=== PATIENT | female | born 1960 | race Caucasian/White ===

== ENCOUNTER 2018-12-08 20:06 | Inpatient (IN) | payer MEDICAID ==
[~2018-12-08] VITALS: Ht 157.5 cm; Wt 45.0 kg
--- NOTE | 2018-12-08 20:07 | NUR ---
Pt sent from [facility] r/t swelling BLE, increased abdominal distension, and increased confusion over the past 5 days. Pt Alert to self, confused, jaundiced with abdominal distension, no swelling noted to BLE. Pt attempting to climb out of bed. Pt on stope miner and in view of nurses station.
--- NOTE | 2018-12-08 20:07 | NUR ---
Placed in room 1 . Placed on steamtable attendant railroad, blood pressure machine and pulse oximeter. To gown for exam. Side rails up. Report given to RADHA TAI BY FLORENTINO TAI.
[2018-12-08 20:23] VITALS: BP_SYST 100
[2018-12-08] MEDS ORDERED: ACET-2165 PO (20:34)
[2018-12-08] MEDS ORDERED: PRO40 PO (20:34)
[2018-12-08] MEDS ORDERED: IBUP-1968 PO (20:34)
[2018-12-08] MEDS ORDERED: LACT10SO6 PO (20:34)
[2018-12-08] MEDS ORDERED: LIB25 PO (20:34)
[2018-12-08] MEDS ORDERED: NEOM500T PO (20:34)
[2018-12-08] MEDS ORDERED: RIFA550T5 PO (20:34)
--- NOTE | 2018-12-08 20:35 | NUR ---
ER at bedside examining patient.
--- NOTE | 2018-12-08 20:35 | NUR ---
Medication reconciliation completed with information provided by [facility]. Any prior medication reconciliation on file was reviewed and corrected.
--- NOTE | 2018-12-08 20:45 | NUR ---
# 20 gauge angiocath placed to LAC. Use of asceptic technique. Opsite placed over site. Blood return noted. Blood for lab drawn from site. Flushed with 10 cc of normal saline. No evidence of infiltration noted. Patient tolerated well.
--- NOTE | 2018-12-08 21:00 | NUR ---
Pt to CT via stretcher in stable condition.
--- NOTE | 2018-12-08 21:10 | NUR ---
Pt returns from CT. NAD.
--- NOTE | 2018-12-08 21:20 | NUR ---
#14 Fr. In/Out urinary cath performed with ~100 mL dark tea colored urine. Specimen collected and sent to lab. Pt tolerated well.
[2018-12-08 21:23] LABS: BASOPHILS # (AUTO) 0.1 K/uL (0.0-0.2); BASOPHILS % (AUTO) 1.2 % (0.0-2.0); EOSINOPHILS # (AUTO) 0.1 K/uL (0.0-0.4); HEMATOCRIT 31.3 % (36-48); HEMOGLOBIN 10.6 g/dL (12.0-16.0); LYMPHOCYTES # (AUTO) 0.6 K/uL (1.0-5.5); LYMPHOCYTES % (AUTO) 13.8 % (20.5-51.5); MEAN CORPUSCULAR HEMOGLOBIN 33 pg (27-31); MEAN CORPUSCULAR HGB CONC 34 % (32-36); MEAN CORPUSCULAR VOLUME 98 fL (79.0-98.0); MONOCYTES # (AUTO) 0.5 K/uL (0.0-1.0); MONOCYTES % (AUTO) 10.6 % (1.7-9.3); NEUTROPHILS # (AUTO) 3.2 K/uL (1.8-7.7); NEUTROPHILS % (AUTO) 72.4 % (40.0-70.0); PLATELET COUNT (AUTO) 137 K/uL (130-430); RED CELL DISTRIBUTION WIDTH 22.4 % (9.0-15.0); WHITE BLOOD COUNT (AUTO) 4.4 K/uL (4.8-10.8)
[2018-12-08 21:28] LABS: CALCIUM 8.4 mg/dL (8.4-11.0); CREATININE 0.57 mg/dL (0.55-1.30); POTASSIUM 3.6 mmol/L (3.5-5.1)
[2018-12-08 21:36] LABS: TOTAL BILIRUBIN 3.3 mg/dL (0.0-1.0)
[2018-12-08 22:02] LABS: BILIRUBIN,URINE 3+ (NEGATIVE); BLOOD, URINE NEGATIVE (NEGATIVE); CLARITY/URINE HAZY (CLEAR); COLOR,URINE AMBER (YELLOW); GLUCOSE,URINE NEGATIVE (NEGATIVE); KETONES,URINE TRACE (NEGATIVE); LEUKOCYTE ESTERASE ,URINE NEGATIVE (NEGATIVE); NITRITE, URINE POSITIVE (NEGATIVE); PH,URINE 5.5 (5.0-8.0); PROTEIN URINE TRACE (NEGATIVE); UROBILINOGEN,URINE 0.2 (0.2-1.0)
[2018-12-08 22:20] LABS: BACTERIA,URINE MODERATE /HPF (None Seen); FINE GRANULAR CASTS,URINE 0-10 /LPF (None Seen); RBC,URINE 0-3 /HPF (0-3); WBC,URINE 0-3 /HPF (0-3)
[2018-12-08 22:21] LABS: MUCUS,URINE 2+ /LPF (None Seen)
--- NOTE | 2018-12-08 22:30 | NUR ---
Resting quietly, even and non-labored respirations, VSS, NAD.
[2018-12-08] MEDS ORDERED: cefTRIAXone 1 GM in D5W 50 ML IV ONE (22:45)
[2018-12-08] MEDS ORDERED: LACTULOSE 20 GM/30 ML UDC PO ONE (22:45)
[2018-12-08] MEDS ORDERED: cefTRIAXone 1 GM IVPB PREMIX 50 ML IV ONE (23:12)
--- NOTE | 2018-12-09 01:25 | NUR ---
Pt pulling off B/P cuff and attempting to get OOB. Dr. Lin notified. Bilat soft wrist restraints applied.
[2018-12-09] MEDS ORDERED: AZITHROMYCIN 500 MG in NS 250 ML IV ONE (01:45)
--- NOTE | 2018-12-09 01:45 | NUR ---
Pt moved to ER bed 06. EDIL, GALE.
[2018-12-09] MEDS ORDERED: AZITHROMYCIN 500 MG/VIAL (ZITHROMAX) IV ONE (02:20)
--- NOTE | 2018-12-09 02:25 | NUR ---
Patient will be admitted to care of Dr. Moran. Admitted to Tele unit. Will go to room 104B. Belongings list completed. Summary report printed. Bedside report given to ABIDA Plata.
--- NOTE | 2018-12-09 02:28 | NUR ---
ADMISSION NOTE Received patient from ER via pamela, received report from BAIDA le. Patient admitted with diagnosis of ascites,pna, hepatic encephalopathy. Patient oriented to hospital routine, call light, toileting and safety-patient verbalized understanding.
[2018-12-09 02:45] VITALS: BP_SYST 119
[2018-12-09] MEDS: D5/0.45 NS 1,000 ML IV SCH ×2 (03:16→22:00)
--- NOTE | 2018-12-09 03:57 | NUR ---
ID Consultation Paged Reason for consultation: Hepatic Encephalopathy Was consult called: Yes Person who was notified: Anais Consulting Physician: Dr Santo Mills Licensed Surveyor Specialty: ID Licensed Surveyor Ordered By: Dr Moran
--- NOTE | 2018-12-09 04:00 | NUR ---
AFFECT LABILE. OCCASIONALLY SHOUTS AND CALLS OUT NAMES. CIRCULATION CHECK DONE. PULSES PALPABLE. BOUTS OF RESTLESSNESS.
--- NOTE | 2018-12-09 06:00 | NUR ---
OCCASIONALLY SHOUTS. RESTLESS. PULSES PALPABLE. REMAINS IN GUARDED CONDITION.
--- NOTE | 2018-12-09 07:56 | NUR ---
initial notes rec patient awake but confused. ivf infusing well on the l ac. no infiltration noted. dr bledsoe at bedside. resp easy and unlabored.bed to the lowest position and side rails up and locked.will continue to monitor patient to patient.
[2018-12-09 08:00] VITALS: BP_SYST 125
[2018-12-09 08:00] LABS: BASOPHILS # (AUTO) 0.1 K/uL (0.0-0.2); BASOPHILS % (AUTO) 1.4 % (0.0-2.0); EOSINOPHILS # (AUTO) 0.1 K/uL (0.0-0.4); EOSINOPHILS % (AUTO) 2.2 % (0.0-4.0); HEMATOCRIT 29.4 % (36-48); HEMOGLOBIN 9.9 g/dL (12.0-16.0); LYMPHOCYTES # (AUTO) 0.7 K/uL (1.0-5.5); LYMPHOCYTES % (AUTO) 16.6 % (20.5-51.5); MEAN CORPUSCULAR HEMOGLOBIN 33 pg (27-31); MEAN CORPUSCULAR HGB CONC 34 % (32-36); MEAN CORPUSCULAR VOLUME 99 fL (79.0-98.0); MONOCYTES # (AUTO) 0.3 K/uL (0.0-1.0); MONOCYTES % (AUTO) 8.6 % (1.7-9.3); NEUTROPHILS # (AUTO) 2.9 K/uL (1.8-7.7); NEUTROPHILS % (AUTO) 71.2 % (40.0-70.0); PLATELET COUNT (AUTO) 159 K/uL (130-430); RED BLOOD CELL COUNT(AUTO) 2.98 MIL/uL (4.2-6.2); RED CELL DISTRIBUTION WIDTH 23.1 % (9.0-15.0)
[2018-12-09 08:06] LABS: CALCIUM 8.1 mg/dL (8.4-11.0); CREATININE 0.54 mg/dL (0.55-1.30); POTASSIUM 3.1 mmol/L (3.5-5.1); THYROID STIMULATING HORMONE 11.77 uIu/mL (0.36-3.74)
[2018-12-09] MEDS ORDERED: SPIRONOLACTONE 50 MG TABLET (ALDACTONE) PO SCH (09:00)
[2018-12-09] MEDS ORDERED: FUROSEMIDE 20 MG TABLET PO SCH (09:00)
--- NOTE | 2018-12-09 10:36 | NUR ---
Nutrition Update Huang Scale 18 noted. Pt admitted for hepatic encephalopathy, R lower lobe pneumonia. Diet: 2 gm Na BMI: 28.9 kg/m2 RD to follow per nutrition care standards.
[2018-12-09 10:39] LABS: INR 1.4 (0.8-1.2)
[2018-12-09 10:43] LABS: PROTHROMBIN TIME 14.3 SECS (9.5-12.5)
--- NOTE | 2018-12-09 11:59 | NUR ---
rounds spoke to pt's friend and stated does not have power of attorney at law. [facility] was called and spoke with saiar rubin nurse that work there and stated pt normally signed her own but having withdrawals right now and cant sign consent.
[2018-12-09 12:40] VITALS: BP_SYST 119
[2018-12-09] MEDS ORDERED: POTASSIUM CHLORIDE 20 MEQ/PKT PACKET PO ONE (12:45)
--- NOTE | 2018-12-09 12:47 | NUR ---
rounds dr john vallejo signed the consent for the paracenteside and waiting for dr james to co signed and will do procedure.
--- NOTE | 2018-12-09 14:30 | NUR ---
paracentesis paracentesis done at bedside on the lower abdomen obtaining dark tea colored drained 1800cc. no sob noted. will continue to monitor patient.
[2018-12-09] MEDS: LACTULOSE 20 GM/30 ML UDC PO SCH ×3 (14:42→21:10)
[2018-12-09 15:34] LABS: BF APPEARANCE UNSPUN CLEAR (CLEAR); BODY FLUID COLOR YELLOW (LT YELLOW); BODY FLUID TOTAL VOLUME 1875 mL; NEUTROPHIL, BODY FLUID 13 %; RBC, BODY FLUID 32 /uL; SOURCE/TYPE ,BODY FLUID ASCITES; WBC, BODY FLUID 89 /uL
[2018-12-09 15:35] LABS: EOSINOPHIL, BODY FLUID 2 %; LYMPHOCYTES, BODY FLUID 85 %; MONOCYTES,BODY FLUID 0 %
[2018-12-09 16:45] VITALS: BP_SYST 151
--- NOTE | 2018-12-09 18:11 | NUR ---
rounds pt have a large amount of watery stool .pt was cleaned and kept dry . no sob noted. turned repositioned for comfort.
--- NOTE | 2018-12-09 19:25 | NUR ---
closing notes sleeping soundly at this time. bed to the lowest position and side rails up and locked. call light withn reached and patient close to the nurses station. no sob noted.
[2018-12-09 20:00] VITALS: BP_SYST 142
--- NOTE | 2018-12-09 20:00 | NUR ---
Pt is lying in bed confused and disoriented. Pt is also restless and moving her body in bed. Bilateral soft wrist restraints are on and no circulatory impairment noted. IVF of D5 1/2NS is infusing well in LAC at 50ml/hr without any signs of infiltration at the IV site. Fall and safety precautions are in place.
[2018-12-09] MEDS: POTASSIUM CHLORIDE 20 MEQ/PKT PACKET PO SCH (21:09)
[2018-12-09] MEDS: RIFAXIMIN 550 MG TABLET PO SCH (21:09)
[2018-12-09] MEDS: cefTRIAXone 1 GM in D5W 50 ML IV SCH (21:09)
--- NOTE | 2018-12-09 22:00 | NUR ---
Pt remains confused and disoriented. No acute distress noted. IVF is infusing well in [facility]. Fall and safety precautions are in place.
[2018-12-09] MEDS: AZITHROMYCIN 500 MG in NS 250 ML IV SCH (22:14)
[2018-12-09 23:25] VITALS: BP_SYST 100
--- NOTE | 2018-12-10 | NUR ---
IVF is infusing well in [facility]. No distress noted at this time. Fall and safety precautions are in place.
--- NOTE | 2018-12-10 02:00 | NUR ---
No acute distress noted. IVF is infusing well.
[2018-12-10 02:34] LABS: BODY FLUID GLUCOSE 111 mg/dL; BODY FLUID TOTAL PROTEIN 2.3 g/dL
--- NOTE | 2018-12-10 04:00 | NUR ---
Pt is resting quietly in bed. IVF is infusing well in [facility]. Fall and safety precautions are in place.
[2018-12-10] MEDS: D5/0.45 NS 1,000 ML IV SCH (04:44)
--- NOTE | 2018-12-10 05:15 | NUR ---
CONSULT Called Dr. Wetzel's exchange for morning consult [phone] Spoke to Clarisa
--- NOTE | 2018-12-10 05:17 | NUR ---
CONSULT Paged Dr. Mills's answering service for morning consult [phone] Spoke to Clarisa
--- NOTE | 2018-12-10 06:30 | NUR ---
Pt is resting quietly in bed. All pt's needs were attended to. IVF is infusing well in [facility]. Will endorse to day shift nurse.
[2018-12-10 07:23] LABS: CALCIUM 8.3 mg/dL (8.4-11.0); CREATININE 0.62 mg/dL (0.55-1.30)
[2018-12-10 07:28] LABS: HEMATOCRIT 33.5 % (36-48); HEMOGLOBIN 11.3 g/dL (12.0-16.0); MEAN CORPUSCULAR HEMOGLOBIN 33 pg (27-31); MEAN CORPUSCULAR HGB CONC 34 % (32-36); MEAN CORPUSCULAR VOLUME 98 fL (79.0-98.0); PLATELET COUNT (AUTO) 162 K/uL (130-430); RED BLOOD CELL COUNT(AUTO) 3.42 MIL/uL (4.2-6.2); RED CELL DISTRIBUTION WIDTH 22.4 % (9.0-15.0)
[2018-12-10 07:45] VITALS: BP_SYST 152
--- NOTE | 2018-12-10 07:45 | NUR ---
INITIAL ROUNDS Received pt awake, confused, mumbling incoherently to herself. Pt restless and pulling at IV line when released from restraints. Plan of care reviewed with pt-pt just mumbled to herself. IVF infusing well to LAC at ordered rate with no s/s infiltration to site. Pt repositioned with pillow support and heels off-loaded. Pt placed back onto soft wrist restraints for safety. HOB elevated for aspiration precautions. Safety precautions in place.
[2018-12-10] MEDS: POTASSIUM CHLORIDE 20 MEQ/PKT PACKET PO SCH ×2 (09:36→20:25)
[2018-12-10] MEDS: LACTULOSE 20 GM/30 ML UDC PO SCH ×3 (09:36→20:25)
[2018-12-10] MEDS: SPIRONOLACTONE 50 MG TABLET (ALDACTONE) PO SCH (09:37)
[2018-12-10] MEDS: FUROSEMIDE 20 MG TABLET PO SCH (09:37)
[2018-12-10] MEDS: RIFAXIMIN 550 MG TABLET PO SCH ×2 (09:37→20:25)
--- NOTE | 2018-12-10 10:02 | NUR ---
ROUNDS Pt resting quietly in bed with no s/s resp distress, no c/o pain or discomfort. Pt remains restless-pulling telemetry box off. Pt repositioned for skin care with pillow support. Aspiration and safety precautions remain in place.
[2018-12-10 10:03] LABS: ATYPICAL LYMPHOCYTES % 0 % (0-0); BAND % (MANUAL) 6 % (0-6); BASOPHILS % (MANUAL) 0 % (0-2); EOSINOPHILS % (MANUAL) 1 % (0-7); LYMPHOCYTES % (MANUAL) 18 % (20-46); MONOCYTES % (MANUAL) 6 % (0-11)
[2018-12-10 11:28] VITALS: BP_SYST 127
--- NOTE | 2018-12-10 12:18 | NUR ---
ROUNDS Pt with no s/s resp distress, no c/o pain or discomfort. Pt remains restless, pulling at telemetry lines. All precautions remain in place.
[2018-12-10 15:22] VITALS: BP_SYST 106
--- NOTE | 2018-12-10 16:05 | NUR ---
ROUNDS Pt remains restless, pulling on restraints, trying to put her legs over the side rails. Pt had large, soft BM. Pt cleaned up and repositioned with pillow support. No s/s resp distress, no c/o pain or discomfort. Pt remains confused. All precautions remain in place.
--- NOTE | 2018-12-10 18:59 | NUR ---
CLOSING NOTE Pt resting quietly in bed with no s/s resp distress, no c/o pain or discomfort. No changes, all precautions remain in place.
--- NOTE | 2018-12-10 19:45 | NUR ---
Pt was received lying in bed awake, but confused and disoriented. No acute distress noted. Pt is refusing dinner at this time. Bilateral soft wrist restraints are in place and no circulatory impairment noted. IVF of D5 1/2NS is infusing well in LAC at 50ml/hr without any signs of infiltration at the IV site. Fall and safety precautions are in place.
[2018-12-10 20:00] VITALS: BP_SYST 93
[2018-12-10] MEDS: cefTRIAXone 1 GM in D5W 50 ML IV SCH (20:25)
--- NOTE | 2018-12-10 20:25 | NUR ---
Pt c/o being hungry. Pt was fed 1 cup Pudding with her HS medications and pt did not want additional food.
[2018-12-10] MEDS: AZITHROMYCIN 500 MG in NS 250 ML IV SCH (21:09)
--- NOTE | 2018-12-10 22:30 | NUR ---
Pt is sleeping without any distress noted. IVF is infusing well in [facility]. Fall and safety precautions are in place.
--- NOTE | 2018-12-11 00:30 | NUR ---
Pt is sleeping without any distress noted. IVF is infusing well in [facility]. Fall and safety precautions are in place.
[2018-12-11 02:19] VITALS: BP_SYST 108
--- NOTE | 2018-12-11 02:30 | NUR ---
Pt is awake and screaming to go outside. Pt was reoriented to her room and surrounding. IVF is infusing well in [facility]. Fall and safety precautions are in place.
--- NOTE | 2018-12-11 03:35 | NUR ---
Pt was incontinent of yellowish urine and incontinence care given. Pt requested food and was spoon fed 1 cup of Jello per her request. Pt also requested milk and she drank 1/2 cup. In addition, pt requested coffee and she drank 1/2 cup. IVF is infusing well in [facility]. Fall and safety precautions are in place.
[2018-12-11] MEDS: D5/0.45 NS 1,000 ML IV SCH (04:41)
--- NOTE | 2018-12-11 05:00 | NUR ---
Pt is sleeping comfortably in bed without any distress noted. IVF is infusing well in [facility].
--- NOTE | 2018-12-11 06:27 | NUR ---
Pt is awake and moving in bed. Pt remains confused and disoriented. All pt's needs were attended to. IVF is infusing well in [facility]. Will endorse to day shift nurse.
[2018-12-11 08:15] VITALS: BP_SYST 128
--- NOTE | 2018-12-11 08:15 | NUR ---
INITIAL ROUNDS Received pt awake, confused, mumbling incoherently to herself. Pt restless, kicking at staff and pulling at IV line when released from restraints. Plan of care reviewed with pt-pt just stared at this resume writer. IVF infusing well to LAC at ordered rate with no s/s infiltration to site. Pt repositioned with pillow support and heels off-loaded. Pt placed back into soft wrist restraints for safety. HOB elevated for aspiration precautions. Safety precautions in place.
[2018-12-11 08:38] LABS: CALCIUM 8.4 mg/dL (8.4-11.0); CREATININE 0.63 mg/dL (0.55-1.30); POTASSIUM 3.6 mmol/L (3.5-5.1)
[2018-12-11 08:47] LABS: EOSINOPHILS # (AUTO) 0.1 K/uL (0.0-0.4); EOSINOPHILS % (AUTO) 3.5 % (0.0-4.0); HEMATOCRIT 32.9 % (36-48); LYMPHOCYTES # (AUTO) 0.7 K/uL (1.0-5.5); LYMPHOCYTES % (AUTO) 15.6 % (20.5-51.5); MEAN CORPUSCULAR HEMOGLOBIN 33 pg (27-31); MEAN CORPUSCULAR HGB CONC 33 % (32-36); MEAN CORPUSCULAR VOLUME 98 fL (79.0-98.0); MONOCYTES # (AUTO) 0.4 K/uL (0.0-1.0); MONOCYTES % (AUTO) 8.4 % (1.7-9.3); NEUTROPHILS % (AUTO) 71.5 % (40.0-70.0); PLATELET COUNT (AUTO) 156 K/uL (130-430); RED BLOOD CELL COUNT(AUTO) 3.35 MIL/uL (4.2-6.2); RED CELL DISTRIBUTION WIDTH 22.3 % (9.0-15.0); WHITE BLOOD COUNT (AUTO) 4.2 K/uL (4.8-10.8)
[2018-12-11] MEDS: LACTULOSE 20 GM/30 ML UDC PO SCH ×3 (08:51→20:44)
[2018-12-11] MEDS: POTASSIUM CHLORIDE 20 MEQ/PKT PACKET PO SCH ×2 (08:51→20:44)
[2018-12-11] MEDS: SPIRONOLACTONE 50 MG TABLET (ALDACTONE) PO SCH (08:52)
[2018-12-11] MEDS: RIFAXIMIN 550 MG TABLET PO SCH ×2 (08:52→20:44)
[2018-12-11] MEDS: FUROSEMIDE 20 MG TABLET PO SCH (08:52)
[2018-12-11 11:05] LABS: HEPATITIS A AB, IgM Negative (Negative); HEPATITIS B CORE AB, IgM Negative (Negative); HEPATITIS B SURFACE AG Negative (Negative)
[2018-12-11 11:31] VITALS: BP_SYST 106
--- NOTE | 2018-12-11 12:03 | NUR ---
ROUNDS Pt remains restless, pulling at soft wrist restraints, kicking her feet at nurse when approached. Pt mumbling to herself. pt had large BM earlier per ASSISTANT CREDIT MANAGER. All precautions remain in place.
[2018-12-11 15:12] VITALS: BP_SYST 99
--- NOTE | 2018-12-11 16:10 | NUR ---
ROUNDS/BM Pt had a small BM and voided. Pt cleaned up and fresh gown placed on pt. Pt immediately tried to pull at her IV tubing when released from her restraints. Pt repositioned and placed back into restraints, given fresh ice water. Pt now resting quietly with no s/s resp distress. All precautions remain in place.
--- NOTE | 2018-12-11 18:29 | NUR ---
CLOSING NOTE Pt remains restless, pt just repositioned in bed after placing fresh linens and a fresh gown-pt voided on the bed sheets. Pt continues to try to get out of bed, trying to swing her legs over the side rails, pt needs constant redirection when awake. No s/s resp distress, no c/o pain or discomfort. All precautions remain in place.
[2018-12-11] MEDS: cefTRIAXone 1 GM in D5W 50 ML IV SCH (20:01)
[2018-12-11] MEDS: AZITHROMYCIN 500 MG in NS 250 ML IV SCH (20:43)
[2018-12-11 20:45] VITALS: BP_SYST 93
--- NOTE | 2018-12-11 20:45 | NUR ---
Opening notes Pt asleep, resting in bed, no s/s distress noted. VSS, afebrile. IVF infusing at ordered rate L. AC20G no s/s infiltration. IV antibiotics administered as scheduled. Safety measures in place. Bed low, locked, siderails up, bed alarm on. To monitor.
--- NOTE | 2018-12-11 21:35 | NUR ---
Rounds/Med pass Pt awake, restless now. Offered pt dinner to eat and took small bites. Scheduled medication crushed with pudding given as ordered. Pt tolerated well. HOB maintained elevated at this time. Encouraged pt to drink water, pt drank some but refused to eat at this time. Safety measures maintained. To monitor.
--- NOTE | 2018-12-11 23:30 | NUR ---
Rounds/Pericare Pt awake, restless in bed, no s/s resp distress. Pt offered and ate vanilla pudding and drank some water. HOB elevated. Pt incontinent of urine. Pericare provided. Bed low, locked, siderails up, bed alarm on. To monitor pt.
[2018-12-12 01:18] VITALS: BP_SYST 96
[2018-12-12] MEDS: D5/0.45 NS 1,000 ML IV SCH (02:23)
--- NOTE | 2018-12-12 02:25 | NUR ---
Rounds Pt asleep, respirations even and unlabored. IVF bag replaced as needed resumed at ordered rate L. AC 20G, no s/s infiltration. Safety measures in place. Bed low, locked, side rails up, bed alarm on. To monitor.
--- NOTE | 2018-12-12 04:21 | NUR ---
Pt asleep, no s/s distress noted. IVF infusing at ordered rate L. AC 20G, no s/s infiltration. Safety measures in place. Bed low, locked, side rails up, bed alarm on. To monitor.
--- NOTE | 2018-12-12 05:30 | NUR ---
Pericare Pt awake, confused, incontinent of urine and stool. Pt restless and kicking off things. Pericare provided and linens changed with COW PUNCHER assist. Restraints released for 15 mins. Safety measures maintained. To monitor.
--- NOTE | 2018-12-12 06:45 | NUR ---
Closing notes Pt awake, restless. No s/s resp distress noted. IVF infusing at ordered rate L. AC 20G clear and patent. Safety measures maintained, bed low, locked, siderails up, bed alarm on. To endorse to AM nurs
[2018-12-12 08:00] VITALS: BP_SYST 105
--- NOTE | 2018-12-12 08:00 | NUR ---
RN INITIAL NOTES RECEIVED PATIENT IN BED ALERT CONFUSED AND ANSWERS QUESTION WHEN ASKED NO DISTRESS WITH BILAT WRIST RESTRAIN RESP EVEN AND UNLABORED , SEEN BY DR OLVERA AND SAID PATIENT COULD BE DC ON HIS END, WILL NOTIFY MD ON ROUNDS
[2018-12-12 08:01] LABS: BASOPHILS % (AUTO) 0.9 % (0.0-2.0); EOSINOPHILS # (AUTO) 0.2 K/uL (0.0-0.4); EOSINOPHILS % (AUTO) 3.1 % (0.0-4.0); HEMATOCRIT 30.4 % (36-48); HEMOGLOBIN 10.3 g/dL (12.0-16.0); LYMPHOCYTES # (AUTO) 0.9 K/uL (1.0-5.5); MEAN CORPUSCULAR HEMOGLOBIN 33 pg (27-31); MEAN CORPUSCULAR HGB CONC 34 % (32-36); MEAN CORPUSCULAR VOLUME 97 fL (79.0-98.0); MONOCYTES # (AUTO) 0.7 K/uL (0.0-1.0); MONOCYTES % (AUTO) 12.5 % (1.7-9.3); NEUTROPHILS # (AUTO) 3.6 K/uL (1.8-7.7); NEUTROPHILS % (AUTO) 66.5 % (40.0-70.0); PLATELET COUNT (AUTO) 138 K/uL (130-430); RED BLOOD CELL COUNT(AUTO) 3.13 MIL/uL (4.2-6.2); RED CELL DISTRIBUTION WIDTH 22.7 % (9.0-15.0)
[2018-12-12 08:05] LABS: ALBUMIN 2.2 g/dL (3.4-4.8); BILIRUBIN,DIRECT 2.9 mg/dL (0.0-0.3); CALCIUM 8.4 mg/dL (8.4-11.0); CREATININE 0.62 mg/dL (0.55-1.30); POTASSIUM 4.3 mmol/L (3.5-5.1); TOTAL BILIRUBIN 3.3 mg/dL (0.0-1.0)
[2018-12-12 08:13] LABS: WHITE BLOOD COUNT (AUTO) 5.4 K/uL (4.8-10.8)
--- NOTE | 2018-12-12 08:30 | NUR ---
LOW HGB PAGED DR LOYA FOR LOW HGB 7.0 AWAITING FOR MD RETURN CALL Addendum: 12/12/18 at 1102 by Ruthy German RN ERROR IN CHARTING
[2018-12-12] MEDS: LACTULOSE 20 GM/30 ML UDC PO SCH ×3 (08:35→17:40)
[2018-12-12] MEDS: POTASSIUM CHLORIDE 20 MEQ/PKT PACKET PO SCH ×2 (08:37→21:43)
[2018-12-12] MEDS: FUROSEMIDE 20 MG TABLET PO SCH (08:37)
[2018-12-12] MEDS: SPIRONOLACTONE 50 MG TABLET (ALDACTONE) PO SCH (08:39)
[2018-12-12] MEDS: RIFAXIMIN 550 MG TABLET PO SCH ×2 (08:40→21:43)
--- NOTE | 2018-12-12 10:00 | NUR ---
RESTRAIN PATIENT KEEP REMOVING HER RESTRAIN REDIRECTED AND ATTENDED NEEDS
--- NOTE | 2018-12-12 10:30 | NUR ---
RESTRAIN PATIENT KEEP REMOVING HER RESTRAIN REDIRECTED
[2018-12-12 11:39] VITALS: BP_SYST 95
--- NOTE | 2018-12-12 12:30 | NUR ---
EATING PATIENT FERILTG6N WITH LUNCH NO DISTRESS AND SAFETY ENSURED
--- NOTE | 2018-12-12 12:30 | NUR ---
ROUNDS PATIENT ASSSITED WITH LUNCH NO COMPLAIN OF PAIN
--- NOTE | 2018-12-12 15:00 | NUR ---
LOOSE STOOL LACTULOSE WILL NOT BE GIVEN PATIENT HAS MASSIVE LOOSE STOOL, PERICARE DONE
[2018-12-12 15:31] VITALS: BP_SYST 100
--- NOTE | 2018-12-12 18:30 | NUR ---
END RN REPORT WILL CONT PLAN OF CARE AND ERNDORSED TO NEXT SHIFT FOR SAFETY AND IF DR LOYA ROUNDS TO INFORM PATIENT IS OK FOR DC , WILL CONT CARE
--- NOTE | 2018-12-12 19:20 | NUR ---
OPENING NOTES Pt is resting in bed with both eyes closed, with visible chest rise and fall with non-labored breathing noted. Pt on restraints, no signs of injury. Pt on IVF with D5,0.45NS at 50ml/hr and infusing well on left AC G20. No moaning or grimacing noted. No signs of acute distress or SOB noted. Safety precautions in place with 3 side rails up, wheels locked, bed alarm on and in lowest level. Call light with pt. Will continue to monitor.
[2018-12-12 21:37] VITALS: BP_SYST 102
[2018-12-12] MEDS: AZITHROMYCIN 500 MG in NS 250 ML IV SCH (21:43)
[2018-12-12] MEDS: cefTRIAXone 1 GM in D5W 50 ML IV SCH (21:43)
--- NOTE | 2018-12-12 21:45 | NUR ---
MED PASS All due meds given and pt tolerated well. Aspiration precaution maintained with head elevated at 50 degrees. No complains of pain and no signs of acute distress noted. Restrains and safety precautions in place. Will continue to monitor.
--- NOTE | 2018-12-13 00:05 | NUR ---
ROUNDS Pt is awake and moving around in bed. Pt had a bowel movement, incontinence care rendered with the help of KATHRYN Guerrero. Pt was cooperating but at times shouting. No signs of acute distress noted. Encouraged pt to rest and sleep. IVF infusing well. Safety precautions in place. Will continue to monitor.
[2018-12-13 01:08] VITALS: BP_SYST 102
[2018-12-13] MEDS: D5/0.45 NS 1,000 ML IV SCH ×2 (02:45→23:30)
--- NOTE | 2018-12-13 03:00 | NUR ---
ROUNDS Pt is awake, confused and tried to get out of the bed. Reoriented to reality and assisted comfortably in bed. Gave pudding and juice, pt tolerated well. No complains of pain and no signs of acute distress noted. Soft restraints on both wrists in place without signs of injury. Safety precautions in place and call light with pt. Will continue to monitor.
--- NOTE | 2018-12-13 05:01 | NUR ---
INCONTINENCE CARE Pt is still awake and moving around the bed. Pt also had a bowel movement, incontinence care rendered with the help of KATHRYN Guerrero and assisted pt comfortably in bed. Encouraged pt to rest and sleep. IVF infusing well. No signs of acute distress noted. Safety precautions in place and call light with pt. Will continue to monitor.
--- NOTE | 2018-12-13 06:34 | NUR ---
CLOSING NOTES Pt is resting in bed with both eyes closed, with visible chest rise and fall with non-labored breathing noted. Pt on restraints, no signs of injury. IVF infusing well. No moaning or grimacing noted. No signs of acute distress or SOB noted. All needs attended throughout the shift. Safety precautions maintained with 3 side rails up, wheels locked, bed alarm on and in lowest level. Call light with pt. Will endorse to day shift nurse.
[2018-12-13 08:00] VITALS: BP_SYST 94
--- NOTE | 2018-12-13 08:00 | NUR ---
RN INITIAL NOTES RECEIVED PATIENT IN BED AWAKE AND RESTLESS TRY TO SIT EGDE OF THE BED , REDIRECTED WITH BILAT RESTRAIN , OFFERED WATER AND MEDS TAKEN WILL CONT CARE AND SAFETY PROVIDED
[2018-12-13 08:31] LABS: ALBUMIN 1.7 g/dL (3.4-4.8); BILIRUBIN,DIRECT 2.4 mg/dL (0.0-0.3); TOTAL BILIRUBIN 2.8 mg/dL (0.0-1.0)
[2018-12-13] MEDS: FUROSEMIDE 20 MG TABLET PO SCH (09:00)
[2018-12-13] MEDS: SPIRONOLACTONE 50 MG TABLET (ALDACTONE) PO SCH (09:00)
[2018-12-13] MEDS: POTASSIUM CHLORIDE 20 MEQ/PKT PACKET PO SCH ×2 (09:43→20:41)
[2018-12-13] MEDS: LACTULOSE 20 GM/30 ML UDC PO SCH ×3 (09:43→20:41)
[2018-12-13] MEDS: RIFAXIMIN 550 MG TABLET PO SCH ×2 (09:43→20:41)
[2018-12-13 11:23] VITALS: BP_SYST 93
--- NOTE | 2018-12-13 11:47 | NUR ---
FLU VACCINE CALLED AND SPOKE WITH FRIEND JUJU AND SHE STATED PATIENT HAD FLU SHOTS ALREADY 3 MONTHS AGO, BUT SHE WILL CALL BACK AND TO CONFIRM IF PATIENT HAD SPECIFIC DATE , INFORMED CHARGE NURSE AND STATED LONG SHE HAD ONE THATS OK , WILL TRY TO CALL SNF AND VERIFY IF FLU SHOT WAS GIVEN
--- NOTE | 2018-12-13 14:00 | NUR ---
ROUNDS PATIENT IN BED ON AND OFF AWAKE AND STILL WITH EPISODES OF TRYING TO GET OUT OF BED AND PULLING HER RESTRAIN
--- NOTE | 2018-12-13 14:52 | NUR ---
Discharge Planning: DCP faxed pt referral to [facility] p [phone]) DCP to follow up
[2018-12-13 14:57] VITALS: BP_SYST 93
--- NOTE | 2018-12-13 15:02 | NUR ---
Alteration Hand:met with pt. who [place] as well as conduct a DCPA. INSPECTOR CIRCUITRY NEGATIVE met with pt. who was in restraints. INSPECTOR CIRCUITRY NEGATIVE introduced self to pt., but pt. was unresponsive. INSPECTOR CIRCUITRY NEGATIVE tried to greet pt. in German and she was still unresponsive to INSPECTOR CIRCUITRY NEGATIVE's questions. INSPECTOR CIRCUITRY NEGATIVE asked if she was going to eat her lunch, if she was expecting any visitors, where she lived. Pt. was not able to converse. INSPECTOR CIRCUITRY NEGATIVE will try to meet with pt. again.
[2018-12-13 15:26] VITALS: BP_SYST 100
--- NOTE | 2018-12-13 16:00 | NUR ---
FLU VACCINE PER RUY FRIEND PATIENT HAD ALREADY FLU VACCINE GIVEN , CALLED SNF AND SPOKE WITH HERO PATIENT HAD FLU VACCINE BEFORE ADMITTING TO THEIR FACILITY PER FRIEND
--- NOTE | 2018-12-13 16:05 | NUR ---
ROUNDS PATIENT ASLEEP AT THIS TIME WILL HAVE MEDS ONCE AWAKE
--- NOTE | 2018-12-13 17:00 | NUR ---
D/C Patient Patient given medication reconciliation form and D/C instructions. Exit Care provided. Patient verbalized understanding. MD discussed with patient the results and treatment provided.RX given with steroids and instruction given with Augmentin po atb and advised to cont the pm dose tonight and patient said she already spoke with her pcp Dr. Hernandez and she will take the meds after she spoke with her tonight, also patient said she will drive her own private car and explained risk of driving her own car , patient stated im feeling ok and i could drive i didnt take any meds that will alter my cognition Charge nurse made aware, Dr Morales was informed about patient driving in her own car this am, Ambulatory with steady gait for discharge to home. Patient in stable condition, ID band removed. IV catheter removed, intact and dressing applied, no active bleeding. Rx of given. Patient educated on pain management. All belongings sent with patient. Addendum: 12/13/18 at 1729 by Ruthy German RN ERROR WRONG PATIENT DOCUMETATION Addendum: 12/13/18 at 1746 by Ruthy German RN ERROR THIS CHARTING IS FOR ANOTHER PATIENT
--- NOTE | 2018-12-13 18:19 | NUR ---
ENDORSEMENT WILL CONT MEDS AND PLAN OF CARE CONT WITH WRIST RESTRAIN , OBTAINED ORDER FOR DVT PPX, NO COMPLAIN OF PAIN STILL FOR DC PLAN IN AM , ACCORDING TO THE FRIEND PATIENT HAD FLU VACCINE ALREADY
--- NOTE | 2018-12-13 19:47 | NUR ---
OPENING NOTES Pt and endorsement received from day shift nurse. Pt is resting in bed with both eyes closed, with visible chest rise and fall with non-labored breathing noted. Pt on restraints with no signs of injury. Pt on IVF with D5,0.45NS at 50ml/hr and infusing well on left AC G20. No moaning or grimacing noted. No signs of acute distress or SOB noted. Safety precautions in place with 3 side rails up, wheels locked, bed alarm on and in lowest level. Call light with pt. Will continue to monitor.
[2018-12-13 20:39] VITALS: BP_SYST 107
[2018-12-13] MEDS: cefTRIAXone 1 GM in D5W 50 ML IV SCH (20:40)
[2018-12-13] MEDS: AZITHROMYCIN 500 MG in NS 250 ML IV SCH (20:41)
--- NOTE | 2018-12-13 20:41 | NUR ---
MED PASS All due meds given and pt tolerated well. Aspiration precaution maintained with head elevated at 50 degrees. No complains of pain and no signs of acute distress noted. IVF infusing well. Safety precautions in place and call light with pt. Will continue to monitor.
--- NOTE | 2018-12-13 20:59 | NUR ---
SEEN BY DR. MORAN Pt seen by Dr. Moran. He ordered labs, read back orders and will carry out.
--- NOTE | 2018-12-13 23:20 | NUR ---
INCONTINENCE CARE Pt had a bowel movement, incontinence care rendered with KATHRYN Miller. Pt tolerated well. IVF infusing well. No signs of acute distress noted. Safety precautions in place and call light with pt. Will continue to monitor.
[2018-12-14 01:38] VITALS: BP_SYST 112
--- NOTE | 2018-12-14 02:05 | NUR ---
ROUNDS Pt is resting in bed with both eyes closed, with visible chest rise and fall with non-labored breathing noted. IVF infusing well. No signs of acute distress noted. Safety precautions in place and call light with pt. Will continue to monitor.
--- NOTE | 2018-12-14 03:00 | NUR ---
ROUNDS Pt is awake, confused, shouting saying she wants to get out of the bed. Pt keep moving around in bed. Reoriented pt to reality and encouraged her to sleep. No complains of pain and no signs of acute distress noted. Restraints in place with no signs of injury. Safety precautions in place and call light with pt. Will continue to monitor.
--- NOTE | 2018-12-14 06:33 | NUR ---
CLOSING NOTES Pt is awake, shouting at times and moving around the bed. Pt on restraints, no signs of injury. IVF infusing well. No complains of pain at this time. No signs of acute distress or SOB noted. All needs attended throughout the shift. Safety precautions maintained with 3 side rails up, wheels locked, bed alarm on and in lowest level. Call light with pt. Will endorse to day shift nurse.
[2018-12-14 07:47] LABS: HEMATOCRIT 29.9 % (36-48); MEAN CORPUSCULAR HEMOGLOBIN 33 pg (27-31); MEAN CORPUSCULAR HGB CONC 34 % (32-36); MEAN CORPUSCULAR VOLUME 98 fL (79.0-98.0); PLATELET COUNT (AUTO) 121 K/uL (130-430); RED BLOOD CELL COUNT(AUTO) 3.06 MIL/uL (4.2-6.2)
[2018-12-14 07:50] LABS: ALBUMIN 1.8 g/dL (3.4-4.8); BILIRUBIN,DIRECT 2.6 mg/dL (0.0-0.3); CALCIUM 8.4 mg/dL (8.4-11.0); CREATININE 0.6 mg/dL (0.55-1.30); POTASSIUM 3.8 mmol/L (3.5-5.1); TOTAL BILIRUBIN 2.9 mg/dL (0.0-1.0)
[2018-12-14] MEDS: POTASSIUM CHLORIDE 20 MEQ/PKT PACKET PO SCH ×2 (10:01→23:03)
[2018-12-14] MEDS: SPIRONOLACTONE 50 MG TABLET (ALDACTONE) PO SCH (10:02)
[2018-12-14] MEDS: LACTULOSE 20 GM/30 ML UDC PO SCH ×3 (10:02→23:03)
[2018-12-14] MEDS: FUROSEMIDE 20 MG TABLET PO SCH (10:03)
[2018-12-14] MEDS: RIFAXIMIN 550 MG TABLET PO SCH ×2 (10:03→23:04)
[2018-12-14] MEDS ORDERED: LORazepam 1 MG TABLET PO PRN (10:15)
[2018-12-14] MEDS ORDERED: chlordiazePOXIDE HCL 25 MG CAPSULE PO PRN (10:15)
[2018-12-14 10:29] LABS: BASOPHILS % (MANUAL) 0 % (0-2); EOSINOPHILS % (MANUAL) 3 % (0-7); LYMPHOCYTES % (MANUAL) 15 % (20-46); MONOCYTES % (MANUAL) 5 % (0-11)
[2018-12-14 11:23] VITALS: BP_SYST 108
--- NOTE | 2018-12-14 12:30 | NUR ---
Discharge Planning: DCP followed up with Soila at [facility] ( [phone] p [phone]) not able to take patient, no sitter available and there is no locked unit. Soila stated she spoke to doctor (PCP) and he would look elsewhere. Addendum: 12/14/18 at 1701 by Lizet Monsivais DP DCP faxed pt referral to [facility] (F [phone] p [phone]) DCP to follow up.
--- NOTE | 2018-12-14 13:38 | NUR ---
Email Marketing Intern: MOTION PICTURE PRINTER received a referral, pt needs professor of social work and to conduct a DCPA MOTION PICTURE PRINTER tried for the 2nd time to meet with pt. who was a little more talkative than my last interaction. Pts' responses were not making sense, pt. was confused and was not able to form complete thoughts. Pt. became teary eyed at times. After some discussion, pt. said she had a twin sister, Cathryn. She added she and a "Alannah Navarro", but when asked for more detail, pt. was not able to fill in the blanks. MOTION PICTURE PRINTER called the emergency contact, Ryan Gilman, who stated Pt. use to rent a room from [facility] [address] [place] [place] [address] [id number] The other part of the address states, [facility]. Neighbor, Ryan stated [facility] use to [facility]. Ryan stated. Pt. has lived with her for the past two months, but in re. to her family, they have disowned her due to her drinking of Vodka. Ryan stated she was willing to care for pt. MOTION PICTURE PRINTER told her she would make a note of this. MOTION PICTURE PRINTER will remain available as needed. MOTION PICTURE PRINTER looked up via cell phone internet and called [facility], [address] [place] [address]. [phone], and spoke to Addendum: 12/14/18 at 1358 by Tarah Tse MOTION PICTURE PRINTER Email Marketing Intern Amend MOTION PICTURE PRINTER spoke to Deidre from [facility]. She stated this is a SNF but because she just returned from maternity leave, she will all me back once her co-worker returns from lunch. Addendum: 12/14/18 at 1544 by Tarah Tse MOTION PICTURE PRINTER Email Marketing Intern: MOTION PICTURE PRINTER to follow up with [facility] MOTION PICTURE PRINTER called to speak to Deidre, but was notified she had left for the day. Spoke to Vice President For Philanthropy Jennifer who looked up pt. , stated she had been at [facility] from 11/29/18 to 12/08/18. Prior to that, pt.came from [facility]. While at [place], pt. kept wanting to get up out of bed so they had to put an alarm on her. Jennifer stated pt. is anemic, has anxiety, is an alcoholic, possible depression. Timeline, Pt at [facility], placed at [facility] from to 12/08/18. Was admitted to [facility] on . Pt. rented a room from Ryan Gilman at [address] [place] [address]. MOTION PICTURE PRINTER shared this info with Case Mngr.
--- NOTE | 2018-12-14 15:21 | NUR ---
Dietitian Recommendations * Recommend 2 gm Na, mechanical soft, chopped diet w/ Ensure Enlive BID (ONS provides 700 kcal/day, 40 gm protein/day) * Encourage increase PO intakes LP, RD Please refer to Nutrition Assessment for details. Addendum: 12/14/18 at [address] Amended: Links added.
[2018-12-14 15:23] VITALS: BP_SYST 100
[2018-12-14] MEDS ORDERED: HALOPERIDOL LACTATE 5 MG/ML VIAL IM PRN ×2 (16:00→16:15)
--- NOTE | 2018-12-14 16:09 | NUR ---
CONSULTATION PAGED/CALLED Reason for Consultation: PSYCH Person Who was Notified: LUDWIG FROM OFFICE. Consulting Physician: Pegger Specialty: PSYCH Ordering Physician:
--- NOTE | 2018-12-14 16:15 | NUR ---
SPOKE TO DR THOMAS PSYCHE CONSULT WITH ORDERED TO SEE DR THOMAS DUE TO INCREASED CONFUSION, AGITATION, ON BILATERAL WRIST RESTRAINTS. DR THOMAS ORDERED TO START SEROQUEL SCHEDULED AND HALDOL PRN.
[2018-12-14 19:00] VITALS: BP_SYST 103
--- NOTE | 2018-12-14 19:15 | NUR ---
change of shift.pt.presents restraints;wrist;bilateral.skin/circulation assessed w/in normal limits.iv access intact;patent iv fluids infusing. general status stable.respiratory status stable@room air.affect;restless.loc;confused.call light/telephone w/in reach of the pt.
[2018-12-14 20:00] VITALS: BP_SYST 103
--- NOTE | 2018-12-14 20:00 | NUR ---
pt.assessed.v/s assessed.values w/in normal limits.language barrier extant;anguillan.pt.primary language.restraints;wrist bilateral in place.skin/circulation w/in normal limits.affect;restless.loc;confused.pt.assessed for cleanliness.pt.repositioned.general cutaneous integrity intact;absent denuded skin.iv access intact;patent;iv fluids infusing.i have synchronized the tv channel to the anguillan language channel.pt.visually tracking the the tv.in response to the anguillan.general status stable.respiratory status stable;unlabored @room air.jd light/telephone placed w/in reach of the pt.
[2018-12-14] MEDS ORDERED: QUEtiapine FUMARATE 25 MG TABLET PO SCH (21:00)
--- NOTE | 2018-12-14 21:00 | NUR ---
2100p medication administered.pt.had stated she was hungry.i have feed the pt.pt capable to swallow mediations.
--- NOTE | 2018-12-14 22:00 | NUR ---
pt.assessed.pt.presents quiescent affect;somnolent.pt.assessed for cleanliness.pt.repositioned.restraints;wrist in place;skin/circulation w/in normal limits.iv access intact;patent;iv fluids infusing.general status stable.respiratory status stable.call light/telephone placed w/in reach of the pt.
[2018-12-14] MEDS: cefTRIAXone 1 GM in D5W 50 ML IV SCH (23:03)
[2018-12-14] MEDS: D5/0.45 NS 1,000 ML IV SCH (23:04)
--- NOTE | 2018-12-15 | NUR ---
pt.assessed/v/s assessed.values w/in normal limits.pt.assessed for cleanliness.pt.cleaned.pt.repositioned.wrist restraints in place.skin/circulation assessed;w/in normal limits.iv access;intact;patent;iv fluids infusing.general status stable.respiratory status stable;unlabored.call light/telephone placed w/in reach of the pt.pt.presents quiescent affect;somnolent.
[2018-12-15 00:46] VITALS: BP_SYST 109
--- NOTE | 2018-12-15 02:00 | NUR ---
pt.assessed.pt.presents quiescent affect;somnolent.restraints wrist in place.iv acces intact;patent;iv fluids infusing. pt.assessed for cleanliness.pt.repositioned.skin circulation integrity w/in normal limits.call light/telephone placed w/in the reach of the pt.
--- NOTE | 2018-12-15 04:00 | NUR ---
pt.assessed.pt.assessed for cleanliness.pt.repositioned.restraints;wrist;bilateral in place.skin/circulation w/in normal limits. iv access;intact;patent.general status stable.respiratory status stable;unlabored.call light/telephone placed w/in reach of the pt.
--- NOTE | 2018-12-15 06:30 | NUR ---
pt.assessed.pt.assessed for cleanliness.pt.cleaned.pt.repositioned.restraints;wrist ;bilateral in place.skin/circulation w/in normal limits. iv acces intact;patent.i have weighed the pt.2/t lasix administration.call light/telephone placed w/in reach of the pt.
[2018-12-15 07:09] LABS: CREATININE 0.66 mg/dL (0.55-1.30); POTASSIUM 4.2 mmol/L (3.5-5.1)
[2018-12-15 07:14] LABS: BASOPHILS % (AUTO) 0.8 % (0.0-2.0); EOSINOPHILS # (AUTO) 0.2 K/uL (0.0-0.4); EOSINOPHILS % (AUTO) 4.4 % (0.0-4.0); HEMOGLOBIN 9.5 g/dL (12.0-16.0); LYMPHOCYTES # (AUTO) 0.8 K/uL (1.0-5.5); LYMPHOCYTES % (AUTO) 18.3 % (20.5-51.5); MEAN CORPUSCULAR HEMOGLOBIN 33 pg (27-31); MEAN CORPUSCULAR HGB CONC 34 % (32-36); MEAN CORPUSCULAR VOLUME 96 fL (79.0-98.0); MONOCYTES # (AUTO) 0.7 K/uL (0.0-1.0); MONOCYTES % (AUTO) 14.7 % (1.7-9.3); NEUTROPHILS # (AUTO) 2.8 K/uL (1.8-7.7); NEUTROPHILS % (AUTO) 61.8 % (40.0-70.0); PLATELET COUNT (AUTO) 106 K/uL (130-430); RED BLOOD CELL COUNT(AUTO) 2.91 MIL/uL (4.2-6.2); RED CELL DISTRIBUTION WIDTH 21.8 % (9.0-15.0); WHITE BLOOD COUNT (AUTO) 4.5 K/uL (4.8-10.8)
--- NOTE | 2018-12-15 07:45 | NUR ---
INITIAL NOTE BEDSIDE REPORT RECEIVED FROM AUTOMOTIVE TIRE TESTER RN. PT AWAKE, SITTING UP IN BED. CALL LIGHT WITHIN REACH, BED IN LOW AND LOCKED POSITION WITH BED ALARM ON.
[2018-12-15 08:00] VITALS: BP_SYST 100
[2018-12-15] MEDS: LACTULOSE 20 GM/30 ML UDC PO SCH ×3 (09:00→20:31)
[2018-12-15] MEDS: FUROSEMIDE 20 MG TABLET PO SCH (09:00)
[2018-12-15] MEDS: POTASSIUM CHLORIDE 20 MEQ/PKT PACKET PO SCH ×2 (09:00→09:17)
[2018-12-15] MEDS: SPIRONOLACTONE 50 MG TABLET (ALDACTONE) PO SCH (09:00)
[2018-12-15] MEDS: QUEtiapine FUMARATE 25 MG TABLET PO SCH ×4 (09:00→20:27)
[2018-12-15] MEDS: RIFAXIMIN 550 MG TABLET PO SCH ×2 (09:00→09:17)
--- NOTE | 2018-12-15 09:45 | NUR ---
RN ROUNDS PT RESTING IN BED. EDUCATED PATIENT ON IMPORTANCE OF MORNING MEDICATIONS, PT UNABLE TO VERBALIZED UNDERSTANDING. PT CONFUSED AND LETHARGIC. PT REFUSING MEDICATIONS AT THIS TIME.
--- NOTE | 2018-12-15 10:46 | NUR ---
DC Planning: Per dr Moran: planning dc to [facility]. If insurance not approved, okay to send pt to any accepting snf. Pt. is confused, on restraint dt fall risk , getting out bed . Dr. Iglesias adjusted dosage for Seroquel yesterday.
--- NOTE | 2018-12-15 12:00 | NUR ---
RN ROUNDS PT RESTING. NO ACUTE DISTRESS NOTED. BREATHING EVEN AND UNLABORED.
[2018-12-15 12:53] VITALS: BP_SYST 98
--- NOTE | 2018-12-15 14:10 | NUR ---
RN ROUNDS PT RESTING IN BED. NO ACUTE DISTRESS NOTED. BREATHING EVEN AND UNLABORED.
--- NOTE | 2018-12-15 16:05 | NUR ---
RN ROUNDS PT RESTING IN BED, NO ACUTE DISTRESS NOTED, BREATHING EVEN AND UNLABORED.
--- NOTE | 2018-12-15 16:07 | NUR ---
DC PLANNING: GUILLAUME SPOKE WITH CARRI (CM AT [facility]) @ [phone], [phone] REGARDING DC PLANNING TO SNF. PER CARRI, PATIENT CAN RETURN BACK TO HER PREVIOUS SNF LONGTERM. PER CARRI, IF PATIENT IS OFF 7 DAY BEDHOLD AND FACILITY WON'T ACCEPT CAN USE ANY [facility] CONTRACTED FACILITY. PENDING AUTH/TRACKING # FOR INPATIENT STAY IS [id number].
[2018-12-15 18:04] VITALS: BP_SYST 120
[2018-12-15 19:00] VITALS: BP_SYST 110
[2018-12-15] MEDS: D5/0.45 NS 1,000 ML IV SCH (19:31)
--- NOTE | 2018-12-15 19:39 | NUR ---
CLOSING NOTE BEDSIDE REPORT GIVEN TO MATERIAL STOCKKEEPER YARD RN. PT AWAKE, SITTING UP IN BED EATING. IVF INFUSING WELL. CALL LIGHT WITHIN REACH, BED IN LOW AND LOCKED POSITION WITH BED ALARM ON. SOFT WRIST RESTRAINTS IN PLACE. Addendum: 12/15/18 at 1954 by Marcia Morales RN PT CARE ENDORSED TO MATERIAL STOCKKEEPER YARD RN.
[2018-12-15 20:00] VITALS: BP_SYST 115
--- NOTE | 2018-12-15 20:00 | NUR ---
received pt in bed with restraints ,restlee and anxious,pm care given repositioned and made comfortable.
[2018-12-15] MEDS: cefTRIAXone 1 GM in D5W 50 ML IV SCH (20:25)
[2018-12-15] MEDS ORDERED: QUEtiapine FUMARATE 100 MG TABLET ONE (20:38)
[2018-12-15] MEDS ORDERED: QUEtiapine FUMARATE 25 MG TABLET PO SCH (21:00)
--- NOTE | 2018-12-16 | NUR ---
q2 hour charting done made comfortable,resting no distress noted
[2018-12-16 01:55] VITALS: BP_SYST 98
--- NOTE | 2018-12-16 04:00 | NUR ---
am care given repostion made comfortable ,no distress noted ,pt remains avey restless ,anxious kicking staff
--- NOTE | 2018-12-16 07:20 | NUR ---
INITIAL NOTE BEDSIDE SBAR REPORT RECEIVED BY BIOINFORMATICS TECHNICIAN RN. PT RESTING, NO ACUTE DISTRESS NOTED, BREATHING EVEN AND UNLABORED. PT REMAINS ON SOFT WRIST RESTRAINTS. CALL LIGHT WITHIN REACH, BED IN LOW AND LOCKED POSITION WITH BED ALARM ON.
[2018-12-16] MEDS: LACTULOSE 20 GM/30 ML UDC PO SCH ×3 (07:54→21:22)
[2018-12-16] MEDS: POTASSIUM CHLORIDE 20 MEQ/PKT PACKET PO SCH ×2 (07:54→21:22)
[2018-12-16] MEDS: QUEtiapine FUMARATE 25 MG TABLET PO SCH ×4 (07:54→21:26)
[2018-12-16] MEDS: SPIRONOLACTONE 50 MG TABLET (ALDACTONE) PO SCH (07:56)
[2018-12-16 08:00] VITALS: BP_SYST 106
--- NOTE | 2018-12-16 09:20 | NUR ---
RN ROUNDS PT AWAKE. ASSISTED WITH BED LINEN CHANGE, AND GOWN CHANGE. PT TOLERATED WELL. REPOSITIONED FOR COMFORT. DENIES ANY PAIN OF DISCOMFORT AT THIS TIME.
--- NOTE | 2018-12-16 11:20 | NUR ---
RN ROUNDS PT RESTING, NO ACUTE DISTRESS NOTED, BREATHING EVEN AND UNLABORED.
[2018-12-16 12:30] VITALS: BP_SYST 102
--- NOTE | 2018-12-16 12:44 | NUR ---
Discharge Planning: DCP faxed pt referral to [facility] (f [phone] p [phone]) DCP to follow up. Addendum: 12/16/18 at 1247 by Lizet Monsivais DP [facility] DCP FAXED TO- Discharge Planning: DCP faxed pt referral to [facility] (f [phone] p [phone]) DCP to follow up. Addendum: 12/16/18 at 1538 by Lizet Monsivais DP [facility] (f [phone] p [phone]) Rm 9B Addendum: 12/16/18 at 1706 by Lizet Monsivais DP Patient going to [facility] (f [phone] p [phone]) Rm 9B, transportation will be arranged by "[facility]" [phone], which will call when ambulance is available. [facility] number [phone] speak to charge nurse or house sanjuanitaer. Patient packet taken to nurse station.
--- NOTE | 2018-12-16 13:05 | NUR ---
MD ROUNDS DR. KELLEY AT BEDSIDE EXAMINING PATIENT.
[2018-12-16] MEDS: D5/0.45 NS 1,000 ML IV SCH (14:35)
--- NOTE | 2018-12-16 15:00 | NUR ---
RN ROUNDS PT RESTING IN BED, NO ACUTE DISTRESS NOTED, BREATHING EVEN AND UNLABORED.
[2018-12-16 15:11] VITALS: BP_SYST 111
--- NOTE | 2018-12-16 17:12 | NUR ---
RN ROUNDS PT RESTING IN BED. REPOSITIONED FOR COMFORT. NO ACUTE DISTRESS NOTED. BREATHING EVEN AND UNLABORED.
--- NOTE | 2018-12-16 19:10 | NUR ---
PM NOTES Receive patient from morning shift nurse. Patient lying in bed being fed by the ROAD GANG SUPERVISOR. No signs of respiratory distress. Denies pain and discomfort. IV fluid is infusing well. Bilateral wrist restraints in place, no signs of injury noted. SCD's attached and operating. AM nurse informed PM nurse for possible discharge to [facility], awaiting for DR. Dean joe.
--- NOTE | 2018-12-16 19:24 | NUR ---
DR. LOYA SPOKE WITH , INFORMED MD OF DISCHARGE PLANNING TO [facility]. NEW ORDERS GIVEN, VERIFIED WITH TELEPHONE READBACK.
--- NOTE | 2018-12-16 19:30 | NUR ---
ROUNDS MD at the bedside. Gave orders for discharge. Will carry out.
--- NOTE | 2018-12-16 19:46 | NUR ---
CLOSING NOTE BEDSIDE REPORT GIVEN TO AUTO TRANSMISSION TECHNICIAN RN. PT RESTING IN BED, NO ACUTE DISTRESS NOTED, BREATHING EVEN AND UNLABORED. SOFT RESTRAINTS IN PLACE. CALL LIGHT WITHIN REACH, BED IN LOW AND LOCKED POSITION WITH BED ALARM ON. PT CARE ENDORSED TO AUTO TRANSMISSION TECHNICIAN RN.
--- NOTE | 2018-12-16 20:10 | NUR ---
CALLED FAMILY RE: TRANSFER Family; Ryan Gilman @ [phone], was informed regarding transfer to [facility]. Ms. Gilman asked if possible the patient will be discharge home. Will inform
[2018-12-16 20:14] VITALS: BP_SYST 103
--- NOTE | 2018-12-16 20:30 | NUR ---
CALLED POC REGARDING TRANSFER/ GAVE REPORT TO RONNIE TREJO As per Dr. Moran. Patient will need to be transferred to [facility] for further medical supervision. Ms Gilman agreed, informed patient will go to room 9B. Given report to Tatum TAI, called [phone] regarding patient medical background.
--- NOTE | 2018-12-16 20:30 | NUR ---
REFUSED FLU SHOT As per patient's POC, Ryan Fletcher, she refusing for patient to get the flu shot prior to being discharged. Hermann Álvaro educated on its purpose and benefits, but still refused.
--- NOTE | 2018-12-16 22:46 | NUR ---
DISCHARGE Given report to EMT Dong Bhandari, [facility]. Patient Vital signs stable. No signs of respiratory distress. No SOB noted. SCD's and IV line was removed, IV catheter intact. Wristband and Telemonitor remove. All needs are met during the shift. Patient escorted out via gurney.
== END 2018-12-16 22:46 | DRG 280 ==
LOC: SED 20:06 → STU 12-09 01:47
PROVIDERS: ADMIT Internal Medicine; ATTEND Internal Medicine
PROC: 0W9G3ZZ Drainage of Peritoneal Cavity, Percutaneous Approach (ICD-10-PCS; principal; 2018-12-10)
DX: K70.31 Alcoholic cirrhosis of liver with ascites (principal); E43 Unspecified severe protein-calorie malnutrition; K72.90 Hepatic failure, unspecified without coma; J18.1 Lobar pneumonia, unspecified organism; R64 Cachexia; F03.90 Unspecified dementia, unspecified severity, without behavioral disturbance, psychotic disturbance, mood disturbance, and anxiety; D64.9 Anemia, unspecified; F20.9 Schizophrenia, unspecified; K56.7 Ileus, unspecified; E46 Unspecified protein-calorie malnutrition; N39.0 Urinary tract infection, site not specified; F10.20 Alcohol dependence, uncomplicated; Z79.899 Other long term (current) drug therapy
CPT/HCPCS: 36415; 49083; 71045; 80048; 80053; 80061; 80074; 80076; 81000-TC; 82140-TC; 82248-TC; 82947-TC; 83605; 84157-TC; 84443-TC; 85007; 85025; 85027; 85610-TC; 87040-TC; 87081; 87086; 89051-TC; 89060-TC; 96365; 96367; 99285; C1729; G0378; J0456; J0696; J1630; J7050; J7060